=== PATIENT | male | born 1995 | race Caucasian/White ===

== ENCOUNTER 2024-04-05 16:22 | Emergency (ER) | payer OTHER, SELFPAY ==
[2024-04-05 16:26] VITALS: BP 166/102; PULSE 89; TEMP 37.1; O2SAT 100; BMI 41.6
--- NOTE | 2024-04-05 16:30 | ECG_ITS ---
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
--- NOTE | 2024-04-05 16:30 | XR_ITS ---
The [address] [address] Patient Name: DAVID CARDENAS MRN: [id number] date: 1995 Sex: M Assigned Patient Location: ER Current Patient Location: ED.MAIN Accession/Order Number: [id number] Exam Date: 04/05/2024 16:40 Report Date: 04/05/2024 17:10 At the request of: SANDRINE CISSE Procedure: XR chest 1V EXAM: XR chest 1V at 1630 hours HISTORY: cp COMPARISON: None. TECHNIQUE: AP upright portable chest x-ray FINDINGS: The heart is not enlarged and the vasculature is not distended. No acute infiltrate, effusion or pneumothorax is identified. The osseous structures are grossly intact. XR/XR chest 1V IMPRESSION: No acute infiltrate or evidence of cardiac decompensation. Electronically authenticated by: BERNARDO RANDHAWA Date: 04/05/2024 17:10
--- NOTE | 2024-04-05 16:32 | ED.CHESTPAI1 ---
HPI - Chest Pain General Chief Complaint: Chest Pain Stated Complaint: Chest Pain Time Seen by Provider: 04/05/24 16:23 Source: patient Mode of arrival: walk-in Limitations: no limitations History of Present Illness HPI narrative: Patient presents ED complaining of right sided chest pain. He states he woke up this morning and thought maybe he slept wrong because his right chest and shoulder and neck were kind of sore. No nausea vomiting no diaphoresis. Patient denies any shortness of breath. No leg pain or swelling no recent traveling or long trips. 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 The chest pains been on and off throughout the day and is worse with palpation of the anterior chest wall. Patient does have a history of high blood pressure and takes medication for it. His initial blood pressure reading here is high but he said that is because he is nervous about being in the emergency room. No fevers no cough no other concerning findings at this time. Patient resting comfortably in bed in no acute distress Related Data Home Medications ?Medication ?Instructions ?Recorded ?Confirmed lisinopril 20 mg tablet 20 mg PO DAILY 04/05/24 04/05/24 pantoprazole 40 mg tablet,delayed 40 mg PO DAILY 04/05/24 04/05/24 release Allergies Allergy/AdvReac Type Severity Reaction Status Date / Time No Known Drug Allergies Allergy Verified 04/05/24 16:26 Review of Systems ROS Status of ROS 10 or more systems reviewed and unremarkable except as noted in history and below PFSH PFSH Social History Little interest or pleasure in doing things: not at all Feeling down, depressed, or hopeless: not at all Exam Narrative Exam Narrative: Time Seen: [] Vital Signs: [Per nurse's notes.] General: [Alert] Skin: [Warm, dry, no rash.] Head: [Normocephalic, atraumatic.] Neck: [Supple, trachea midline.] Eye: [Pupils are equal, round and reactive to light, extraocular movements are intact, normal conjunctiva.] Ears, nose, mouth and throat: oral mucosa moist. Cardiovascular: [Regular rate and rhythm, no murmur.] Respiratory: [Lungs are clear to auscultation, respirations are non-labored, breath sounds are equal.] Chest wall: Chest tenderness with palpation to the right anterior chest wall, pain is reproducible Gastrointestinal: [Soft, nontender, non distended, normal bowel sounds.] MSK: 5 out of 5 muscle strength x 4 extremities no calf pain or edema Lymphatics: [No lymphadenopathy.] Psychiatric: [Cooperative, appropriate mood & affect.] Neurological: [Alert and oriented to person, place, time, and situation, no focal neurological deficit observed.] Constitutional Vital Signs, click to edit/add: Last Vital Signs Temp 98.8 F 04/05/24 16:26 Pulse 101 H 04/05/24 17:13 Resp 18 04/05/24 17:13 BP 117/84 04/05/24 17:13 Pulse Ox 99 04/05/24 17:13 O2 Del Method Room Air 04/05/24 17:13 Course Vital Signs Vital signs: Vital Signs Temperature 98.8 F 04/05/24 16:26 Pulse Rate 89 04/05/24 16:26 Respiratory Rate 18 04/05/24 16:26 Blood Pressure 166/102 H 04/05/24 16:26 Pulse Oximetry 100 04/05/24 16:26 Temperature 98.8 F 04/05/24 16:26 Pulse Rate 101 H 04/05/24 17:13 Respiratory Rate 18 04/05/24 17:13 Blood Pressure 117/84 04/05/24 17:13 Pulse Oximetry 99 04/05/24 17:13 Oxygen Delivery Method Room Air 04/05/24 17:13 MDM - Chest Pain MDM Narrative Medical decision making narrative: Patient's labs are negative for acute. Chest x-ray clear. EKG nonacute. Pain is reproducible with palpation of the anterior right chest. Most likely musculoskeletal chest wall pain. Return to ED if worsening symptoms otherwise follow-up with family doctor outpatient. Patient is comfortable with care plan for home Differential Diagnosis Differential diagnosis: Likely stable angina, unstable angina pectoris, atypical chest pain, costochondritis and chest pain Lab Data Attestation: I reviewed the patient's lab results. Labs: Lab Results 04/05/24 Range/Units 16:33 WBC 11.2 H (4.0-11.0) 10^3/uL RBC 5.55 (4.70-6.10) 10^6/uL Hgb 16.1 (14.0-18.0) g/dL Hct 46.4 (42.0-54.0) % MCV 83.6 (80.0-94.0) fL MCH 29.0 (25.9-34.0) pg MCHC 34.7 (29.9-35.2) g/dL RDW 12.1 (11.0-15.0) % Plt Count 341 (150-450) 10^3/uL MPV 8.4 L (9.5-13.5) fL Neut % (Auto) 48.2 (43.0-75.0) % Lymph % (Auto) 38.2 (20.5-60.0) % [place] % (Auto) 10.5 (1.7-12.0) % Eos % (Auto) 2.2 (0.9-7.0) % Baso % (Auto) 0.5 (0.2-2.0) % Neut # (Auto) 5.4 (1.4-6.5) 10^3/uL Lymph # (Auto) 4.3 H (1.2-3.8) 10^3/uL [place] # (Auto) 1.2 H (0.3-0.8) 10^3/uL Eos # (Auto) 0.3 (0.0-0.7) 10^3/uL Baso # (Auto) 0.1 (0.0-0.1) 10^3/uL Abs Immat Gran (auto) 0.05 H (0.00-0.03) 10^3/uL Imm/Tot Granulo (auto) 0.4 (0.0-0.5) % Sodium 137 (136-145) mmol/L Potassium 3.8 (3.5-5.1) mmol/L Chloride 103 (98-107) mmol/L Carbon Dioxide 24.5 (21.0-32.0) mmol/L Anion Gap 13.3 BUN 11.0 (7.0-18.0) mg/dL Creatinine 1.00 (0.70-1.30) mg/dL Est GFR ( Amer) >60 (>=60 mL/min/1.73m^2) Est GFR (Non-Af Amer) >60 (>=60 mL/min/1.73m^2) BUN/Creatinine Ratio 11.0 Glucose 118 H (74-106) mg/dL Calcium 9.5 (8.5-10.1) mg/dL Total Bilirubin 0.7 (0.2-1.0) mg/dL AST 25 (15-37) U/L ALT 70 H (16-63) U/L Alkaline Phosphatase 74 (46-116) U/L Troponin I High Sens <4.0 L (4.0-76.1) pg/mL Total Protein 8.2 (6.4-8.2) g/dL Albumin 3.9 (3.4-5.0) g/dL Globulin 4.3 g/dL Albumin/Globulin Ratio 0.9 Imaging Data Chest x-ray: Radiologist's impression: ITS Impressions Chest X-Ray 04/05/24 16:30 IMPRESSION: No acute infiltrate or evidence of cardiac decompensation. Electronically authenticated by: BERNARDO RANDHAWA Date: 04/05/2024 17:10 ECG Data Attestation: I personally reviewed and interpreted this ECG as follows: Interpretation: EKG INTERPRETATION Time: [] 162 Rate: [] 94 Rhythm: _ [] Normal sinus rhythm ST segments: _ [] T waves: _ [] Ectopy: _ [] P wave/MI interval: _ [] QRS interval: _ [] QT interval: _ [] Comparison: _ [] Comparison EKG date: [] Performed by: [self] no acute ST elevation or depression Discharge Plan Discharge Chief Complaint: Chest Pain Clinical Impression: Chest wall pain Patient Disposition: Home, Self-Care Time of Disposition Decision: 17:05 Condition: Good Mode of Transportation: Private Vehicle Prescriptions / Home Meds: No Action lisinopril 20 mg tablet 20 mg PO DAILY pantoprazole 40 mg tablet,delayed release (DR/EC) 40 mg PO DAILY Print Language: Macedonian Instructions: Chest Wall Pain (ED) Referrals: Myrna Kumar NP [Primary Care Provider] - 1 week Discharge Date/Time: 04/05/24 17:14
[2024-04-05 16:40] LABS: Basophils Absolute Auto 0.1 10^3/uL (0.0-0.1); Basophils Percent Auto 0.5 % (0.2-2.0); Eosinophils Absolute Auto 0.3 10^3/uL (0.0-0.7); Eosinophils Percent Auto 2.2 % (0.9-7.0); Hematocrit 46.4 % (42.0-54.0); Hemoglobin 16.1 g/dL (14.0-18.0); Immature Granulocytes Abs Auto 0.05 10^3/uL (0.00-0.03); Immature Granulocytes Pct Auto 0.4 % (0.0-0.5); Lymphocytes Absolute Auto 4.3 10^3/uL (1.2-3.8); Lymphocytes Percent Auto 38.2 % (20.5-60.0); Mean Corpuscular HGB Conc 34.7 g/dL (29.9-35.2); Mean Corpuscular Volume 83.6 fL (80.0-94.0); Mean Platelet Volume 8.4 fL (9.5-13.5); Monocytes Absolute Auto 1.2 10^3/uL (0.3-0.8); Monocytes Percent Auto 10.5 % (1.7-12.0); Neutrophils Absolute Auto 5.4 10^3/uL (1.4-6.5); Neutrophils Percent Auto 48.2 % (43.0-75.0); Platelet Count 341 10^3/uL (150-450); Red Blood Count 5.55 10^6/uL (4.70-6.10); Red Cell Distribution Width 12.1 % (11.0-15.0); White Blood Count 11.2 10^3/uL (4.0-11.0)
[2024-04-05 16:56] LABS: Alanine Aminotransferase 70 U/L (16-63); Albumin Globulin Ratio 0.9; Albumin Level 3.9 g/dL (3.4-5.0); Alkaline Phosphatase 74 U/L (46-116); Anion Gap 13.3; Aspartate Amino Transferase 25 U/L (15-37); Bilirubin Total 0.7 mg/dL (0.2-1.0); Calcium 9.5 mg/dL (8.5-10.1); Carbon Dioxide 24.5 mmol/L (21.0-32.0); Chloride 103 mmol/L (98-107); Estimated GFR (African America >60 (>=60 mL/min/1.73m^2); Estimated GFR (Non-African Ame >60 (>=60 mL/min/1.73m^2); Globulin 4.3 g/dL; Glucose 118 mg/dL (74-106); Potassium 3.8 mmol/L (3.5-5.1); Sodium 137 mmol/L (136-145); Total Protein 8.2 g/dL (6.4-8.2); Troponin I High Sensitivity <4.0 pg/mL (4.0-76.1)
[2024-04-05 17:13] VITALS: BP 117/84; PULSE 101; O2SAT 99
== END 2024-04-05 17:14 | disposition home or self-care (01) ==
PROVIDERS: Emergency Provider Emergency Medicine; PCP Nurse Practitioner Family
DX: R07.89 Other chest pain (principal); I10 Essential (primary) hypertension; Z79.899 Other long term (current) drug therapy
CPT/HCPCS: 36415; 71045; 80053; 84484; 85025; 93005; 99285